=== PATIENT | male | born 1985 | race Asian ===

== ENCOUNTER 2017-05-07 17:48 | Emergency (ER) | payer OTHER ==
[~2017-05-07] VITALS: Ht 170.2 cm; Wt 72.6 kg
[~2017-05-07 17:48] MED LIST: IBUPROFEN 600600 M1 PO; NOHOMEMEDICATIONS; NORCO 5-325 TA1 EACH PO
[2017-05-07] MEDS ORDERED: NORCO 5-325 TA1 EACH PO (18:33)
[2017-05-07 18:51] VITALS: BP 133/91
== END 2017-05-07 19:00 | disposition home or self-care (01) ==
LOC: ER 17:48
DX: S05.8X2A Other injuries of left eye and orbit, initial encounter (principal); W21.39XA Struck by other sports foot wear, initial encounter; Y93.89 Activity, other specified; Y92.89 Other specified places as the place of occurrence of the external cause; Y99.8 Other external cause status; F17.210 Nicotine dependence, cigarettes, uncomplicated; Z88.8 Allergy status to other drugs, medicaments and biological substances

== ENCOUNTER 2018-05-30 18:36 | Emergency (ER) | payer OTHER ==
[~2018-05-30] VITALS: Ht 170.2 cm; Wt 74.8 kg
[2018-05-30] MEDS ORDERED: KEFLEX500 M1 PO (21:34)
[2018-05-30] MEDS ORDERED: TRAMADOL 50 MG50 MG PO (21:34)
[2018-05-30 21:39] VITALS: BP 126/74
== END 2018-05-30 21:40 | disposition home or self-care (01) ==
LOC: ER 18:36
DX: S91.341A Puncture wound with foreign body, right foot, initial encounter (principal); F17.210 Nicotine dependence, cigarettes, uncomplicated; Z88.8 Allergy status to other drugs, medicaments and biological substances; X58.XXXA Exposure to other specified factors, initial encounter; Y93.01 Activity, walking, marching and hiking; Y92.89 Other specified places as the place of occurrence of the external cause; Y99.8 Other external cause status

== ENCOUNTER 2019-07-22 17:43 | Emergency (ER) | payer OTHER ==
[~2019-07-22] VITALS: Ht 170.2 cm; Wt 72.6 kg
[~2019-07-22 17:43] MED LIST changes: +KEFLEX500 M1 PO; +TRAMADOL 50 MG50 MG PO
[2019-07-22] MEDS ORDERED: NORCO 5-325 TA1 EAC1 PO (18:46)
[2019-07-22] MEDS ORDERED: NAPROSYN500 MG PO (18:46)
[2019-07-22 19:12] VITALS: BP 119/68
== END 2019-07-22 19:13 | disposition home or self-care (01) ==
LOC: ER 17:43
DX: S80.11XA Contusion of right lower leg, initial encounter (principal); F17.210 Nicotine dependence, cigarettes, uncomplicated; Z88.8 Allergy status to other drugs, medicaments and biological substances; Z98.52 Vasectomy status; W22.8XXA Striking against or struck by other objects, initial encounter; Y93.83 Activity, rough housing and horseplay; Y92.89 Other specified places as the place of occurrence of the external cause; Y99.8 Other external cause status

== ENCOUNTER 2021-04-06 07:54 | Emergency (ER) | payer OTHER ==
[~2021-04-06] VITALS: Ht 170.2 cm; Wt 73.9 kg
[~2021-04-06 07:54] MED LIST changes: +NAPROSYN500 MG PO; +NORCO 5-325 TA1 EAC1 PO
[2021-04-06 09:37] LABS: BASOPHILS 1.2 % (0.0-2.0); HEMATOCRIT 40.9 % (42.0-52.0); HEMOGLOBIN 14.3 gm/dL (14.0-18.0); MCH 32.4 pg (26.0-34.0); MCHC 34.9 g/dL (28.0-37.0); MCV 92.7 fL (80.0-100.0); PLATELET COUNT 241 thou/uL (150-400); POLYS 73.8 % (36.0-66.0); RBC 4.41 mil/uL (4.50-6.00); RDW 13.1 % (10.5-14.5); WBC 8.1 thou/uL (4.0-11.0)
[2021-04-06 09:40] LABS: CALCIUM 9.1 mg/dL (8.5-10.1); CREATININE 0.9 mg/dL (0.7-1.3); POTASSIUM 4.1 mmol/L (3.5-5.1)
[2021-04-06] MEDS ORDERED: NORCO7.5 PO (10:19)
[2021-04-06 10:46] VITALS: BP 123/94
== END 2021-04-06 10:33 | disposition home or self-care (01) ==
LOC: ER 07:54
PROVIDERS: Emergency Medicine
DX: S29.9XXA Unspecified injury of thorax, initial encounter (principal); F17.210 Nicotine dependence, cigarettes, uncomplicated; Z98.890 Other specified postprocedural states; W20.8XXA Other cause of strike by thrown, projected or falling object, initial encounter; Y93.89 Activity, other specified; Y92.89 Other specified places as the place of occurrence of the external cause; Y99.8 Other external cause status